=== PATIENT | male | born 1995 | race Caucasian/White ===

== ENCOUNTER 2019-12-22 18:13 | Emergency (ER) | payer BC ==
--- NOTE | 2019-12-22 20:01 | EDM.PDOC ---
ED HPI GENERAL MEDICAL PROBLEM - General Chief Complaint: Genitourinary Problem Stated Complaint: NEED PRESCRIPTION Time Seen by Provider: 12/22/19 19:10 Source of Information: Reports: Patient, RN Notes Reviewed - History of Present Illness INITIAL COMMENTS - FREE TEXT/NARRATIVE: Has genital warts that first showed up about a month ago, now more of them above penis lower ant abd abd and on penis. not painful. no other sx. Treatments [employer]: Reports: Other (see below) - Related Data Allergies Allergy/AdvReac Type Severity Reaction Status Date / Time No Known Allergies Allergy Verified 12/22/19 18:47 Home Meds: Home Meds . [No Known Home Meds] 12/22/19 [History] Past Medical History - Past Health History Medical/Surgical History: Denies Medical/Surgical History Social & Family History - Tobacco Use Smoking Status *Q: Current Every Day Smoker Years of Tobacco use: 3 Packs/Tins Daily: 0.5 - Caffeine Use Caffeine Use: Reports: Soda - Recreational Drug Use Recreational Drug Use: No ED ROS GENERAL - Review of Systems Review Of Systems: See Below Constitutional: Reports: No Symptoms HEENT: Reports: No Symptoms Respiratory: Denies: Shortness of Breath Cardiovascular: Denies: Chest Pain GI/Abdominal: Denies: Nausea, Vomiting : Reports: Other (genital warts, not painful, no drainage) Musculoskeletal: Reports: No Symptoms Skin: Denies: Rash Neurological: Reports: No Symptoms ED EXAM, RENAL/ - Physical Exam Exam: See Below General Appearance: Alert, No Apparent Distress Head: Atraumatic Neck: Supple Respiratory/Chest: No Respiratory Distress (Male) Exam: Other (he has about 10 warts proximal and mid penis, no urethral drainage, no open lesions) Extremities: Normal Inspection Neurological: Alert, No Motor/Sensory Deficits Skin Exam: Warm, Dry, Other (he also has a few warts lower abd just above penis) Course - Vital Signs Last Recorded V/S: Last Vital Signs Temp 97.1 F 12/22/19 18:44 Pulse 72 12/22/19 18:44 Resp 20 12/22/19 18:44 BP 123/77 12/22/19 18:44 Pulse Ox 98 12/22/19 18:44 Departure - Departure Time of Disposition: 19:58 Disposition: Home, Self-Care 01 Condition: Fair Clinical Impression: Genital warts - Discharge Information Instructions: Genital Warts, [id number] Referrals: PCP,None [Ordering Only Provider] - Forms: ED Department Discharge Additional Instructions: Imiquimid 5% cream as prescribed. Follow up with a clinic provider as needed if symptoms not resolving over time as expected. Sepsis Event Note (ED) - Evaluation Sepsis Screening Result: No Definite Risk - Focused Exam Vital Signs: Vital Signs Temp Pulse Resp BP Pulse Ox 12/22/19 18:44 97.1 F 72 20 123/77 98
== END 2019-12-22 20:37 | disposition home or self-care (01) ==
LOC: JD.ED 18:13
DX: A63.0 Anogenital (venereal) warts (principal); F17.210 Nicotine dependence, cigarettes, uncomplicated
CPT/HCPCS: 99282; 99283